=== PATIENT | female | born 1995 | race Caucasian/White ===

== ENCOUNTER 2020-06-20 11:08 | Emergency (ER) | payer MEDICAID ==
[2020-06-20] MEDS ORDERED: Sodium Chloride 0.9% 10 ML Syringe FLUSH PRN (11:43)
[2020-06-20] MEDS ORDERED: Ketorolac 30 MG/ML SDV IVPUSH ONE (12:29)
--- NOTE | 2020-06-20 12:29 | EDM.PDOC ---
ED HPI GENERAL MEDICAL PROBLEM - General Chief Complaint: Abdominal Pain Stated Complaint: ABDOMINAL PAIN Time Seen by Provider: 06/20/20 11:16 Source of Information: Reports: Patient History Limitations: Reports: No Limitations - History of Present Illness INITIAL COMMENTS - FREE TEXT/NARRATIVE: 24-year-old female presents to the emergency department today complaints of lower abdominal pain that started last evening. Patient was laying in bed watching TV last night when she developed lower abdominal pain. She states that it feels like labor pains in her abdomen specifically in the pelvic area. Patient states she went to bed and woke in the middle the night and it was slightly better and it is still present this morning. Patient denies any fever, chills, nausea, vomiting or diarrhea. She states she did have a bowel movement this morning and this was normal for her. She denies any burning with urination or difficulty voiding. She denies any significant past medical history. Mid-Anterior Abdomen Pain Score (Numeric/FACES): 10 - Related Data Allergies Allergy/AdvReac Type Severity Reaction Status Date / Time Penicillins Allergy Hives Verified 06/20/20 11:20 Home Meds: Home Meds Cefdinir [Omnicef] 300 mg PO BID #10 cap 06/20/20 [Rx] Past Medical History - Past Health History Medical/Surgical History: Denies Medical/Surgical History Social & Family History - Family History Family Medical History: No Pertinent Family History - Tobacco Use Tobacco Use Status *Q: Current Every Day Tobacco User Years of Tobacco use: 10 Packs/Tins Daily: 1 Second Hand Smoke Exposure: No - Caffeine Use Caffeine Use: Reports: Coffee, Energy Drinks, Soda, Tea - Alcohol Use Days Per Week of Alcohol Use: 2 Number of Drinks Per Day: 3 Total Drinks Per Week: 6 - Recreational Drug Use Recreational Drug Use: Yes Recreational Drug Type: Reports: Marijuana/Hashish ED ROS GENERAL - Review of Systems Review Of Systems: Comprehensive ROS is negative, except as noted in HPI. ED EXAM, GI/ABD - Physical Exam Exam: See Below Exam Limited By: No Limitations General Appearance: Alert, WD/WN, No Apparent Distress Ears: Normal External Exam, Hearing Grossly Normal Nose: Normal Inspection Throat/Mouth: Normal Inspection, Normal Voice, No Airway Compromise Head: Atraumatic, Normocephalic Neck: Normal Inspection, Supple, Non-Tender, Full Range of Motion Respiratory/Chest: No Respiratory Distress, Lungs Clear, Normal Breath Sounds, No Accessory Muscle Use, Chest Non-Tender Cardiovascular: Normal Peripheral Pulses, Regular Rate, Rhythm, No Edema, No Murmur GI/Abdominal Exam: Normal Bowel Sounds, Soft, No Distention, Tender (Suprapubic tenderness) (Female) Exam: Deferred Rectal (Female) Exam: Deferred Back Exam: Normal Inspection, Full Range of Motion Extremities: Normal Inspection, Normal Range of Motion, Non-Tender, No Pedal Edema, Normal Capillary Refill Neurological: Alert, Oriented, Normal Cognition Psychiatric: Normal Affect, Normal Mood Skin Exam: Warm, Dry, Intact, Normal Color, No Rash Lymphatic: No Adenopathy Course - Vital Signs Text/Narrative:: 24-year-old female with complaints of abdominal pain specifically in the pelvis. She states this started last evening while she is watching TV while laying in bed. She describes it as feeling like labor pains however it is constant. She denies any recent fever chills, nausea, vomiting or diarrhea. She denies any difficulty voiding or burning with urination. She states this morning she had a bowel movement and this was completely normal for her. It was normal in appearance. On examination her bowel tones are positive in all 4 quadrants. She does have tenderness with palpation to all 4 quadrants but she is more tender in the right lower and left lower quadrant. I have ordered labs, a flat and upright of the abdomen, and Toradol for discomfort. I have also ordered a urinalysis. Last Recorded V/S: Last Vital Signs Temp 97.4 F 06/20/20 11:21 Pulse 73 06/20/20 11:21 Resp 16 06/20/20 11:21 BP 124/82 06/20/20 11:21 Pulse Ox 98 06/20/20 11:21 - Orders/Labs/Meds Orders: Active Orders 24 hr Category Date Time Status CULTURE URINE [RM] Stat Lab 06/20/20 12:48 Received Sodium Chloride 0.9% [Saline Flush] Med 06/20/20 11:43 Active 10 ml FLUSH ASDIRECTED PRN Saline Lock Insert [OM.PC] Stat Oth 06/20/20 11:43 Ordered Medication Orders Sodium Chloride (Saline Flush) 10 ml FLUSH ASDIRECTED PRN PRN Reason: Keep Vein Open Last Admin: 06/20/20 12:50 Dose: 10 ml Documented by: PAYAL Labs: Laboratory Tests 06/20/20 06/20/20 06/20/20 Range/Units 12:40 12:40 12:48 WBC 10.71 H (3.98-10.04) K/mm3 RBC 4.87 (3.98-5.22) M/mm3 Hgb 14.2 (11.2-15.7) gm/dl Hct 42.0 (34.1-44.9) % MCV 86.2 (79.4-94.8) fl MCH 29.2 (25.6-32.2) pg MCHC 33.8 (32.2-35.5) g/dl RDW Std Deviation 41.5 (36.4-46.3) fL Plt Count 330 (182-369) K/mm3 MPV 9.0 L (9.4-12.3) fl Neut % (Auto) 59.9 (34.0-71.1) % Lymph % (Auto) 29.7 (19.3-51.7) % [place] % (Auto) 6.3 (4.7-12.5) % Eos % (Auto) 3.2 (0.7-5.8) Baso % (Auto) 0.7 (0.1-1.2) % Neut # (Auto) 6.42 H (1.56-6.13) K/mm3 Lymph # (Auto) 3.18 (1.18-3.74) K/mm3 [place] # (Auto) 0.68 H (0.24-0.36) K/mm3 Eos # (Auto) 0.34 (0.04-0.36) K/mm3 Baso # (Auto) 0.07 (0.01-0.08) K/mm3 Manual Slide Review Normal smear Sodium 142 (136-145) mEq/L Potassium 3.9 (3.5-5.1) mEq/L Chloride 106 (98-107) mEq/L Carbon Dioxide 24 (21-32) mEq/L Anion Gap 15.9 H (5-15) BUN 15 (7-18) mg/dL Creatinine 1.2 H (0.55-1.02) mg/dL Est Cr Clr Drug Dosing 69.69 mL/min Estimated GFR (MDRD) 55 (>60) mL/min BUN/Creatinine Ratio 12.5 L (14-18) Glucose 96 (74-106) mg/dL Calcium 8.9 (8.5-10.1) mg/dL Magnesium 1.9 (1.8-2.4) mg/dl Total Bilirubin 0.8 (0.2-1.0) mg/dL AST 16 (15-37) U/L ALT 40 (14-59) U/L Alkaline Phosphatase 72 (46-116) U/L C-Reactive Protein 2.0 H* (<1.0) mg/dL Total Protein 7.5 (6.4-8.2) g/dl Albumin 3.6 (3.4-5.0) g/dl Globulin 3.9 gm/dL Albumin/Globulin Ratio 0.9 L (1-2) Urine Color Yellow (Yellow) Urine Appearance Slt cloudy H (Clear) Urine pH 6.0 (5.0-8.0) Ur Specific [place] > or = 1.030 (1.005-1.030) Urine Protein 1+ H (Negative) Urine Glucose (UA) Negative (Negative) Urine Ketones Negative (Negative) Urine Occult Blood 3+ H (Negative) Urine Nitrite Negative (Negative) Urine Bilirubin 1+ H (Negative) Urine Urobilinogen 0.2 (0.2-1.0) Ur Leukocyte Esterase 2+ H (Negative) Urine RBC 5-10 H (0-5) /hpf Urine WBC 10-20 H (0-5) /hpf Ur Squamous Epith Cells 30-40 H (0-5) /hpf Calcium Oxalate Crystal Moderate H (NONE) Urine Bacteria Many H (FEW) /hpf Urine Mucus Many H (FEW) /hpf Meds: Medications Generic Name Dose Route Start Last Admin Trade Name Freq PRN Reason Stop Dose Admin Sodium Chloride 10 ml 06/20/20 11:43 06/20/20 12:50 Saline Flush FLUSH 10 ml ASDIRECTED PRN Administration Keep Vein Open Discontinued Medications Generic Name Dose Route Start Last Admin Trade Name Freq PRN Reason Stop Dose Admin Ketorolac Tromethamine 30 mg 06/20/20 12:29 06/20/20 12:50 Toradol IVPUSH 06/20/20 12:30 30 mg ONETIME ONE Administration - Re-Assessments/Exams Free Text/Narrative Re-Assessment/Exam: 06/20/20 13:38 Radiologist impression supine and upright views of the abdomen: 1. Nothing acute is seen on 2 view abdominal x-ray. 06/20/20 15:17 Labs reveal a WBC of 10.71, neutrophil percentage 59.9, chemistry reveals an anion gap of 15.9, BUN 15, creatinine 1.2 magnesium 1.9, C-reactive protein 2.0 Urinalysis reveals urine appearance slightly cloudy, 1+ urine protein, 3+ occult blood, 1+ bilirubin, 2+ leuk esterase, 5-10 RBC, 10-20 WBC, 30-40 epithelial cells, calcium oxalate moderate, urine bacteria many, urine mucus many Departure - Departure Time of Disposition: 14:39 Disposition: Home, Self-Care 01 Condition: Good Clinical Impression: UTI (urinary tract infection) Qualifiers: Urinary tract infection type: acute cystitis Hematuria presence: with hematuria Qualified Code(s): N30.01 - Acute cystitis with hematuria - Discharge Information Prescriptions: Cefdinir [Omnicef] 300 mg PO BID #10 cap Referrals: Tammy Cates MD [Primary Care Provider] - Forms: ED Department Discharge Additional Instructions: You were seen in the ED today with complaints of lower abdominal pain. Xray was unremarkable. Labs were unremarkable as well except your urine does show that you have a urinary tract infection which is likely the cause of your lower abdominal pain. I have sent a prescription for omnicef to be taken one tab twice daily for five days. I have also sent your urine for culture. You should notice improvement in the next 48-72 hours. Take tylenol or ibuprofen for discomfort. Should you develop fever or chills or nausea or vomiting, do not hesitate to return to the emergency department. Sepsis Event Note (ED) - Evaluation Sepsis Screening Result: No Definite Risk - Focused Exam Vital Signs: Vital Signs Temp Pulse Resp BP Pulse Ox 06/20/20 11:21 97.4 F 73 16 124/82 98 - My Orders Last 24 Hours: My Active Orders 06/20/20 11:43 Sodium Chloride 0.9% [Saline Flush] 10 ml FLUSH ASDIRECTED PRN Saline Lock Insert [OM.PC] Stat 06/20/20 12:48 CULTURE URINE [RM] Stat - Assessment/Plan Last 24 Hours: My Active Orders 06/20/20 11:43 Sodium Chloride 0.9% [Saline Flush] 10 ml FLUSH ASDIRECTED PRN Saline Lock Insert [OM.PC] Stat 06/20/20 12:48 CULTURE URINE [RM] Stat
--- NOTE | 2020-06-20 12:40 | CR ---
Abdomen: Supine and upright views the abdomen were obtained. Comparison: No prior abdominal imaging is available. Bowel gas pattern appears normal. No abnormal calcifications are seen. No free air is identified. Bony structures are within normal limits. Impression: 1. Nothing acute is seen on 2 view abdominal x-ray. Diagnostic code #1
== END 2020-06-20 15:15 | disposition home or self-care (01) ==
LOC: JD.ED 11:08
DX: N30.01 Acute cystitis with hematuria (principal); Z72.0 Tobacco use; Z88.0 Allergy status to penicillin
CPT/HCPCS: 36415; 74019; 80053; 81001; 83735; 85025; 86140; 87077; 87086; 87088; 96374; 99284; J1885